=== PATIENT | male | born 1960 | race Caucasian/White ===

== ENCOUNTER 2024-11-25 07:21 | Outpatient (CLI) | payer MEDICARE, OTHER, SELFPAY ==
--- NOTE | 2024-11-25 08:27 | W.ANESCHARGE ---
Anesthesia Charges Start Date/Time Anesthesia Start Date: 11/25/24 Anesthesia Start Time: 07:56 Stop Date/Time Anesthesia Stop Date: 11/25/24 Anesthesia Stop Time: 08:24
--- NOTE | 2024-11-25 08:53 | W.ANESCHARGE ---
Anesthesia Charges Start Date/Time Anesthesia Start Date: 11/25/24 Anesthesia Start Time: 07:56 Stop Date/Time Anesthesia Stop Date: 11/25/24 Anesthesia Stop Time: 08:24
== END 2024-11-25 07:22 | disposition home or self-care (01) ==
LOC: OP CLINIC 07:23
PROVIDERS: PCP Family Medicine; Visit Provider Surgery
DX: Z12.11 Encounter for screening for malignant neoplasm of colon (principal); D12.3 Benign neoplasm of transverse colon; D12.8 Benign neoplasm of rectum; K57.30 Diverticulosis of large intestine without perforation or abscess without bleeding; Z86.0100 Personal history of colon polyps, unspecified
CPT/HCPCS: 00811; 45385; 88305; J2704

== ENCOUNTER 2025-09-08 12:44 | Outpatient (CLI) | payer MEDICARE, OTHER, SELFPAY ==
[2025-09-08 13:41] VITALS: BP 156/90; PULSE 80; RESP 16; O2SAT 98
--- NOTE | 2025-09-08 14:16 | P.STN_ITS ---
Stress Test Note Date Date Seen: 09/08/25 Date of test: 09/08/25 Providers Primary care provider: Prince Roper Stress test physician: Josh Lange Stress Test Note Stress test ordered: Exercise Stress Test Indication for test: Shortness of breath, atrial fibrillation Stress test medicine: None Results discussion: Patient is a very nice gentleman who presents for the above test, after discussion the risks benefits and side effects he would like to proceed, cardiac stress test medical history form is reviewed in detail. He was on metoprolol, but held that for 1 day. Pretest EKG shows normal sinus rhythm, with a ventricular rate of 69, blood pressure 143/93. For some diffuse lateral ST wave flattening, standard exercise protocol is done over a period of 9 minutes 50 seconds, patient reported to me that he was done, he did develop some leg fatigue, and some mild shortness of breath. He achieved a metabolic equivalent of 11.3 Mets with a maximum heart rate of 137 which is 104% of the maximum. No other significant anginal equivalent symptoms, there is no ST wave changes sug gestive of ischemia, there is no dysrhythmias noted. Conditioning was felt to be good Impression: Negative electrographic portion of stress test, negative subjective Follow up suggested: Patient will be discharged from this facility, clinical correlation with this will be needed with the ordering physician, he did well, there were no complications.
== END 2025-09-08 13:43 | disposition home or self-care (01) ==
PROVIDERS: PCP Family Medicine; Visit Provider Student in an Organized Health Care Education/Training Program
DX: I48.0 Paroxysmal atrial fibrillation (principal); E78.5 Hyperlipidemia, unspecified
CPT/HCPCS: 93016; 93017